=== PATIENT | female | born 1935 | race Asian ===

== ENCOUNTER → 2017-11-25 | Outpatient (CLI) | payer MEDICARE, OTHER | END | disposition home or self-care (01) | LOC: RADPV 09:14 | PROVIDERS: ATTEND Internal Medicine | DX: I70.0 Atherosclerosis of aorta (principal); R93.8 Abnormal findings on diagnostic imaging of other specified body structures | CPT/HCPCS: 71046 ==

== ENCOUNTER 2019-01-30 22:57 | Emergency (ER) | payer MEDICARE, OTHER ==
[~2019-01-30] VITALS: Ht 149.9 cm; Wt 59.1 kg
[2019-01-30] MEDS ORDERED: NIFE60TA71 PO (23:19)
[2019-01-30] MEDS ORDERED: GLIP2.5ER PO (23:19)
[2019-01-30] MEDS ORDERED: HYDR25TA84 PO (23:19)
[2019-01-30] MEDS ORDERED: ATOR10TA84 PO (23:19)
[2019-01-30] MEDS ORDERED: ACAR50TA11 PO (23:19)
[2019-01-30] MEDS ORDERED: ENAL20 PO (23:19)
[2019-01-30] MEDS ORDERED: METF-960 PO (23:19)
[2019-01-30 23:35] LABS: GLUCOSE,POINT OF CARE 162 MG/DL (70-110)
[2019-01-31 03:57] VITALS: BP 134/74
== END 2019-01-31 03:59 | disposition home or self-care (01) ==
LOC: EMS 22:57
DX: M25.562 Pain in left knee (principal); M25.512 Pain in left shoulder; E11.9 Type 2 diabetes mellitus without complications; E78.00 Pure hypercholesterolemia, unspecified; I10 Essential (primary) hypertension; Z90.710 Acquired absence of both cervix and uterus; Z88.6 Allergy status to analgesic agent; Z79.84 Long term (current) use of oral hypoglycemic drugs
CPT/HCPCS: 29530

== ENCOUNTER → 2021-01-31 | Outpatient (CLI) | payer MEDICARE, OTHER ==
[~2021-01-31] MED LIST: ACAR50TA2 PO; ATOR10TA84 PO; ENAL20 PO; GLIP2.5ER PO; HYDR25TA84 PO; METF-960 PO; NIFE-39 PO
== END | disposition home or self-care (01) ==
LOC: RADPV 08:23
PROVIDERS: ATTEND Internal Medicine
DX: M19.011 Primary osteoarthritis, right shoulder (principal); M19.012 Primary osteoarthritis, left shoulder; M17.0 Bilateral primary osteoarthritis of knee; M77.8 Other enthesopathies, not elsewhere classified; M85.89 Other specified disorders of bone density and structure, multiple sites; M50.123 Cervical disc disorder at C6-C7 level with radiculopathy; M48.02 Spinal stenosis, cervical region; I70.0 Atherosclerosis of aorta; M25.78 Osteophyte, vertebrae; M41.86 Other forms of scoliosis, lumbar region; M51.16 Intervertebral disc disorders with radiculopathy, lumbar region; M48.061 Spinal stenosis, lumbar region without neurogenic claudication; M51.17 Intervertebral disc disorders with radiculopathy, lumbosacral region; M48.07 Spinal stenosis, lumbosacral region; M25.461 Effusion, right knee; M25.462 Effusion, left knee
CPT/HCPCS: 72040; 72100; 73030-TC; 73562-TC